=== PATIENT | female | born 1980 | race Caucasian/White ===

== ENCOUNTER 2024-08-22 08:53 | Observation (INO) ==
[2024-08-22] MEDS: NOZIN NASAL SANITIZER TP ONE (09:05)
[2024-08-22] MEDS: LR 1,000 ML IV 1,000 ML IV ONE ×2 (09:05→11:46)
[2024-08-22] MEDS: LR 1,000 ML IV 1,100 ML IV PRN (10:30)
[2024-08-22] MEDS ORDERED: ZOFRAN INJ 4 MG VIAL IVP PRN (10:34)
[2024-08-22] MEDS ORDERED: REGLAN INJ 10 MG VIAL IVP PRN (10:34)
[2024-08-22] MEDS ORDERED: BENADRYL INJ 50 MG VIAL IVP PRN (10:34)
[2024-08-22] MEDS: REGLAN INJ 10 MG VIAL IVP PRN (10:35)
[2024-08-22] MEDS: PEPCID 20 MG VIAL IVP PRN (10:35)
[2024-08-22] MEDS: ZOFRAN INJ 4 MG VIAL IVP PRN (10:35)
[2024-08-22] MEDS ORDERED: OFIRMEV IV 1000 MG VIAL 1,000 MG/100 ML VIAL IV ONE (10:40)
[2024-08-22] MEDS: NS 100 ML IV 100 ML ONE (10:56)
[2024-08-22] MEDS: ANCEF VIAL 1 GRAM ONE (10:56)
[2024-08-22] MEDS ORDERED: PRECEDEX INJ VIAL ONE (11:00)
[2024-08-22] MEDS ORDERED: ULTANE GAS IN ONE (11:00)
[2024-08-22] MEDS: ANCEF VIAL 1 GRAM IV PRN (11:00)
[2024-08-22] MEDS ORDERED: VENTOLIN or PROAIR HFA ONE (11:00)
[2024-08-22] MEDS ORDERED: KETAMINE HCL ONE (11:00)
[2024-08-22] MEDS ORDERED: XYLOCAINE 2 % (PLAIN) ONE (11:00)
[2024-08-22] MEDS: VERSED IVP PRN (11:01)
[2024-08-22] MEDS: PRECEDEX INJ VIAL IVP PRN (11:03)
[2024-08-22] MEDS: FENTANYL VIAL INJ 100 mcg IVP PRN (11:07)
[2024-08-22] MEDS: DIPRIVAN VIAL 180 ML IVP PRN (11:07)
[2024-08-22] MEDS: XYLOCAINE 2 % (PLAIN) INJ PRN (11:07)
[2024-08-22] MEDS: KETAMINE HCL IV PRN (11:16)
[2024-08-22] MEDS: DECADRON INJ IVP PRN (11:19)
[2024-08-22] MEDS: EPHEDRINE SULFATE INJ IVP PRN (11:24)
[2024-08-22] MEDS: TORADOL 30 MG VIAL IVP PRN (11:40)
[2024-08-22] MEDS: OFIRMEV IV 1000 MG VIAL 1,000 MG/100 ML VIAL IV PRN (12:12)
[2024-08-22] MEDS: ZEMURON 100 MG VIAL IVP PRN (12:21)
[2024-08-22] MEDS: BACTROBAN TOPICAL OINT ONE (12:28)
[2024-08-22] MEDS: BRIDION IVP PRN (12:31)
[2024-08-22] MEDS ORDERED: BARHEMSYS INJ ONE (12:52)
[2024-08-22] MEDS: BARHEMSYS INJ IVP PRN (12:55)
[2024-08-22] MEDS ORDERED: DILAUDID INJ ONE (13:01)
[2024-08-22] MEDS: DILAUDID INJ IVP PRN (13:03)
[2024-08-22] MEDS: D5 1/2 NS 1,000 ML 1,000 ML IV SCH (13:50)
[2024-08-22] MEDS: ANCEF VIAL 1 GRAM IVP SCH (14:18)
[2024-08-22] MEDS: ZOFRAN INJ 4 MG VIAL IVP SCH (14:18)
[2024-08-22] MEDS: NORCO 5/325 MG TAB PO PRN (14:38)
[2024-08-22] MEDS: MORPHINE SULFATE INJ 2 MG INJ IVP PRN (16:34)
[2024-08-22] MEDS: FENTANYL VIAL INJ 100 mcg ONE (21:45)
[2024-08-22] MEDS: PEPCID 20 MG VIAL ONE (21:46)
[2024-08-22] MEDS: VERSED ONE (21:46)
[2024-08-22] MEDS: BRIDION ONE (21:47)
[2024-08-22] MEDS: REGLAN INJ 10 MG VIAL ONE (21:47)
[2024-08-22] MEDS: DIPRIVAN VIAL 20 ML ONE (21:48)
[2024-08-22] MEDS: TORADOL 30 MG VIAL ONE (21:48)
[2024-08-22] MEDS: ZOFRAN INJ 4 MG VIAL ONE (21:49)
[2024-08-22] MEDS: ZEMURON 100 MG VIAL ONE (21:49)
[2024-08-22] MEDS: DECADRON INJ ONE (21:59)
[2024-08-22] MEDS: BARHEMSYS INJ ONE (22:00)
[2024-08-22] MEDS: EPHEDRINE SULFATE INJ ONE (22:00)
[2024-08-23 06:30] LABS: BASOPHILS # (AUTO) 0.1 X10^3/uL (0.0-0.1); BASOPHILS % (AUTO) 1.4 % (0.2-1.0); HEMATOCRIT 27.5 % (36.0-47.0); HEMOGLOBIN 8.7 g/dL (12.0-16.0); LYMPHOCYTES # (AUTO) 1.2 X10^3/uL (1.3-2.9); LYMPHOCYTES % (AUTO) 11.9 % (21.0-51.0); MEAN CORPUSCULAR HEMOGLOBIN 19.3 pg (27.0-34.0); MEAN CORPUSCULAR HGB CONC 31.6 g/dL (33.0-35.0); MEAN CORPUSCULAR VOLUME 61.2 fL (80.0-100.0); MEAN PLATELET VOLUME 8.8 fL (7.4-11.0); MONOCYTES # (AUTO) 0.5 x10^3/uL (0.3-0.8); MONOCYTES % (AUTO) 4.6 % (0.0-13.0); NEUTROPHILS # (AUTO) 8.6 x10^3/uL (2.2-4.8); NEUTROPHILS % (AUTO) 82.1 % (42.0-75.0); PLATELET COUNT 394 X10^3/uL (150.0-450.0); RED CELL DISTRIBUTION WIDTH 19.7 % (11.6-16.5); WHITE BLOOD COUNT 10.5 X10^3/uL (3.6-10.0)
[2024-08-23 06:52] LABS: ALANINE AMINOTRANSFERASE 31 Units/L (12-78); ALBUMIN 3.4 g/dL (3.4-5.0); ALKALINE PHOSPHATASE 51 Units/L (46-116); ASPARTATE AMINO TRANSFERASE 27 Units/L (15-37); BLOOD UREA NITROGEN 6 mg/dL (7-18); CALCIUM 8.7 mg/dL (8.5-10.1); CARBON DIOXIDE 23.7 mmol/L (21-32); CHLORIDE 105 mmol/L (98-107); COR NA(FOR HYPERGLY) 140 mmol/L (136-145); CREATININE 0.71 mg/dL (0.55-1.02); GLUCOSE 146 mg/dL (65-99); SODIUM 139 mmol/L (136-145); TOTAL PROTEIN 6.9 g/dL (6.4-8.2); eGFR NON BLACK RACES > 60 (>60)
[2024-08-23 07:09] LABS: ANISOCYTOSIS SLIGHT; HYPOCHROMASIA 3+; MICROCYTOSIS 2+; OVALOCYTES SLIGHT; PLATELET MORPHOLOGY COMMENT NORMAL (NORMAL); POIKILOCYTOSIS SLIGHT; TARGET CELLS SLIGHT
[2024-08-23 08:15] VITALS: RESP 18
[2024-08-23 11:13] VITALS: BP 130/66; PULSE 66; TEMP 98.4; O2SAT 97
== END 2024-08-23 10:45 | disposition home or self-care (01) ==
LOC: MED/SURG 08:53 → SURG1 08:53
PROVIDERS: ADMIT Surgery; ATTEND Surgery
DX: Z59.89 Other problems related to housing and economic circumstances; K82.8 Other specified diseases of gallbladder; R74.8 Abnormal levels of other serum enzymes; K66.0 Peritoneal adhesions (postprocedural) (postinfection); R10.11 Right upper quadrant pain; E80.6 Other disorders of bilirubin metabolism; K80.12 Calculus of gallbladder with acute and chronic cholecystitis without obstruction; R73.09 Other abnormal glucose; E66.9 Obesity, unspecified; Z68.39 Body mass index [BMI] 39.0-39.9, adult